=== PATIENT | female | born 1985 | race African-American/Black ===

== ENCOUNTER 2018-04-07 17:16 | Emergency (ER) | payer OTHER ==
[~2018-04-07] VITALS: Ht 152.4 cm; Wt 56.7 kg
[2018-04-07 18:15] LABS: ABSOLUTE EOSINOPHILS 0.1 thou/uL (0.0-0.7); ABSOLUTE LYMPHOCYTES 1.9 thou/uL (0.8-5.3); ABSOLUTE MONOCYTES 0.6 thou/uL (0.0-1.2); ABSOLUTE NEUTROPHILS 3.6 thou/uL (1.6-8.1); BASOPHILS 0.3 %; HEMATOCRIT 36.2 % (37.0-47.0); LYMPHOCYTES 30.9 %; MCH 29.8 pg (26.0-34.0); MCHC 33.2 g/dL (28.0-37.0); MCV 89.8 fL (80.0-100.0); MONOCYTES 9.7 %; MPV 6.8 fl. (7.2-11.1); NUCLEATED RBCS 0 /100WBC; PLATELET COUNT* 320 thou/uL (150-400); POLYS 57.1 %; RBC 4.03 mil/uL (4.20-5.00); RDW-CV 12.2 % (10.5-14.5); WBC 6.3 thou/uL (4.0-11.0)
[2018-04-07 18:26] LABS: CALCIUM 9.3 mg/dL (8.5-10.1); CREATININE 0.8 mg/dL (0.6-1.3); POTASSIUM 3.6 mmol/L (3.5-5.1)
[2018-04-07 18:31] LABS: ALBUMIN 3.7 g/dL (3.4-5.0); TOTAL BILIRUBIN 0.5 mg/dL (<0.1-1.0); TOTAL PROTEIN 7.2 g/dL (6.4-8.2)
[2018-04-07] MEDS ORDERED: KEFLEX500 M1 PO (18:37)
[2018-04-07] MEDS ORDERED: TRIAMCINOLONE A80 G2 TOP (18:37)
[2018-04-07] MEDS ORDERED: ACETAMINOPHEN-1 EAC1 PO (18:37)
[2018-04-07 18:47] VITALS: BP 108/68
== END 2018-04-07 18:48 | disposition home or self-care (01) ==
LOC: M.ERS 17:16
PROVIDERS: Physician Assistant
DX: J02.9 Acute pharyngitis, unspecified (principal); M79.675 Pain in left toe(s); M79.674 Pain in right toe(s); R21 Rash and other nonspecific skin eruption